=== PATIENT | female | born 1985 | race Caucasian/White ===

== ENCOUNTER → 2022-05-12 18:38 | Outpatient (CLI) | payer OTHER, SELFPAY ==
--- NOTE | ~2022-05-12 | XR_ITS ---
EXAMINATION: XR hip BI 2V w AP pelvis DATE: 05/12/2022 18:59 INDICATION: Right hip pain. TECHNIQUE: An anteroposterior view pelvis and 3 views of each hip were obtained. COMPARISON: None. FINDINGS: Bone alignment is normal. No fracture. The joint spaces are normal. IMPRESSION: 1. Normal pelvis and hips. Reviewed, dictated and finalized at location A. IMPRESSION: 1. Normal pelvis and hips.
== END ==
PROVIDERS: PCP Family Medicine; Visit Provider Orthopaedic Surgery
DX: M25.551 Pain in right hip (principal)
CPT/HCPCS: 73521

== ENCOUNTER → 2022-06-19 13:59 | Outpatient (CLI) | payer OTHER, SELFPAY ==
--- NOTE | ~2022-06-19 | MR_ITS ---
EXAMINATION: MR pelvis wo con DATE: 06/19/2022 14:36 INDICATION: Bilateral anterior hip pain. TECHNIQUE: Magnetic resonance imaging (MRI) of the pelvis was performed without intravenous contrast. COMPARISON: Pelvis and hip radiograph 05/12/2022 FINDINGS: Bone alignment is normal. No fracture. The femoral head/neck morphologies are normal. The h ips demonstrated normal cartilage. The sacroiliac joints are normal. No hip joint effusion. There is mild bilateral trochanteric bursitis. The gluteus minimus and gluteus medius tendons are normal. The iliopsoas tendons are normal. The hamstring tendon origins are normal. IMPRESSION: 1. Mild bilateral trochanteric bursitis. Reviewed, dictated and finalized at location A. [employer]
== END ==
PROVIDERS: PCP Family Medicine; Visit Provider Orthopaedic Surgery
DX: M70.61 Trochanteric bursitis, right hip (principal); M70.62 Trochanteric bursitis, left hip
CPT/HCPCS: 72195